=== PATIENT | female | born 1985 | race Caucasian/White ===

== ENCOUNTER 2017-05-12 17:28 | Emergency (ER) | payer MEDICARE, OTHER ==
[2017-05-12 18:18] LABS: #Eosinphils 0.1 thou/uL (0.0-0.7); #Lymphocytes 1.7 thou/uL (1.20-3.40); #Monocytes 0.5 thou/uL (0.11-0.59); #Neutrophils 5.4 thou/uL (1.40-6.50); %Basophils 0.6 % (0.0-1.0); %Eosinophils 1.1 % (0.0-10.0); %Lymphocytes 21.7 % (21.0-51.0); %Monocytes 6.8 % (0.0-10.0); %Neutrophils 69.8 % (42.0-75.0); Hemoglobin 13.9 g/dL (12.0-16.0); Mean Corpuscular HGB CONC 33.1 g/dL (32.0-36.0); Mean Corpuscular Hemoglobin 29.2 pg (27.0-31.0); Mean Corpuscular Volume 88.1 fl (81.0-99.0); Mean Platelet Volume 7.5 fL (7.4-10.4); Platelet Count 251 thou/uL (130-400); RBC Distribution Width 11.6 % (11.5-14.5); Red Blood Cell (RBC) Count 4.78 mill/uL (4.20-5.40); White Blood Cell (WBC) Count 7.7 thou/uL (4.8-10.8)
[2017-05-12 18:32] LABS: Amphetamine Not Detected (NotDetected); Barbiturates Screen Not Detected (NotDetected); Benzodiazepine Screen Detected (NotDetected); Cocaine Metabolite Screen Not Detected (NotDetected); Medtox Control Line Valid? VALID (VALID); Medtox Reader # READER 1; Methadone Not Detected (NotDetected); Methamphetamine Not Detected (NotDetected); Opiate Screen Not Detected (NotDetected); Oxycodone Screen Not Detected (NotDetected); Phencyclidine (PCP) Not Detected (NotDetected); THC/Cannabinoid Screen Not Detected (NotDetected); Tricyclic Screen Not Detected (NotDetected)
[2017-05-12 18:42] LABS: ALT (SGPT) 15 U/L (8-55); AST (SGOT) 19 U/L (5-34); Acetaminophen Less than 6.0 mcg/mL (10.0-30.0); Albumin 4.2 g/dL (3.5-5.0); Alcohol Less than 10 mg/dL (Less than 10); Alkaline Phosphatase 92 U/L (40-150); Anion Gap 12 mmol/L (10-20); BUN (Urea Nitrogen) 12 mg/dL (7.0-18.7); Bilirubin, Total 0.2 mg/dL (0.2-1.2); Calc. Creatinine Clearance 0 mL/min (70-130); Calcium 9.4 mg/dL (7.8-10.44); Carbon Dioxide 26 mmol/L (22-29); Chloride 104 mmol/L (98-107); Estimated GFR-MDRD Greater than 90; Globulin 2.8 g/dL (2.4-3.5); Glucose 83 mg/dL (70-105); Salicylate Less than 8.0 mg/dL (15.0-30.0); Sodium 138 mmol/L (136-145)
[2017-05-12 19:20] LABS: Bilirubin Negative (Negative); Blood, Urine Negative (Negative); Clarity CLEAR (Clear); Glucose, Urine (Dipstick) Negative (Negative); Leukocyte Trace (Negative); Nitrite Negative (Negative); Pregnancy Test - Urine (BHCG) Negative (Negative); Pregu Control Background? CLEAR/WHITE (CLR/WHITE); Pregu Control Bar Appear? YES (CONTROL BAR); Protein, Urine (Dipstick) Negative (Neg-Trace); Specific Gravity 1.015 (1.002-1.036); Specific Gravity, Urine 1.015 (1.002-1.036); Urobilinogen 0.2 mg/dL (0.2-1.0)
[2017-05-12 19:22] LABS: Bacteria/HPF None Seen HPF (None Seen); Hyaline Casts/LPF 0-3 HYALINE CAST LPF (0-3 Hyaline); Pathc Cast-AUWi Flag 0.13 (0-2.49); RBC/HPF 0-3 HPF (0-3); Squamous Epithelial 0-3 HPF (0-3)
== END 2017-05-12 22:49 | disposition home or self-care (01) ==
LOC: ERS 17:28
DX: F41.9 Anxiety disorder, unspecified (principal); Z79.84 Long term (current) use of oral hypoglycemic drugs; Z79.899 Other long term (current) drug therapy
CPT/HCPCS: 36415; 80053; 80306; 80307; 81003; 81015; 81025; 84443; 85025; 99283

== ENCOUNTER 2018-05-25 08:24 | Outpatient (CLI) | payer OTHER, MEDICARE, MEDICAID ==
--- NOTE | 2018-05-25 13:53 | NM ---
RADIONUCLIDE GASTRIC EMPTYING SCAN: HISTORY: A 33-year-old female with vomiting, unspecified. TECHNIQUE: A gastric emptying scan was performed, following the oral administration of 2.1 millicuries of techne tium 99m sulfur colloid in scrambled eggs. FINDINGS: There is 36% emptying of the ingested gastric contents at 1 hour, 75% emptying at 2 hours, 87% emptyi ng at 3 hours, and 100% emptying at 4 hours. The calculated gastric emptying half-time measures 91 minutes. IMPRESSION: Normal exam. POS: [id number]
== END 2018-05-25 08:25 | disposition home or self-care (01) ==
LOC: NM 08:24
PROVIDERS: ATTEND Internal Medicine Endocrinology, Diabetes & Metabolism
DX: R11.10 Vomiting, unspecified (principal); R73.03 Prediabetes
CPT/HCPCS: 78264; A9541

== ENCOUNTER 2020-11-15 15:34 | Outpatient (CLI) | payer MEDICARE, MEDICAID | END 2020-11-15 15:35 | disposition home or self-care (01) | LOC: BICULT 15:34 | PROVIDERS: ATTEND Urology | DX: R35.1 Nocturia (principal) | CPT/HCPCS: 76770 ==

== ENCOUNTER 2022-01-09 12:13 | Outpatient (CLI) | payer OTHER, MEDICARE ==
[2022-01-09 13:39] LABS: Bilirubin Neg (Negative); Blood, Urine 250 (Negative); Clarity Sl. Cloudy (Clear); Glucose, Urine (Dipstick) Normal (Negative); Ketone, Urine 150 mg/dL (Negative); Leukocyte 25 (Negative); Nitrite Negative (Negative); Protein, Urine (Dipstick) 100 mg/dl (Neg-Trace); Specific Gravity, Urine 1.015 (1.005-1.030); Urobilinogen Normal mg/dL (Less than 2)
[2022-01-09 13:40] LABS: Hemoglobin 14.2 g/dL (12.0-15.5); Mean Corpuscular HGB CONC 35.1 g/dL (32.0-36.0); Mean Corpuscular Hemoglobin 30.9 pg (27.0-33.0); Mean Corpuscular Volume 87.8 fl (81.6-98.3); Platelet Count 287 10x3/uL (150-450); RBC Distribution Width 11.2 % (11.5-14.5); White Blood Cell (WBC) Count 6.8 10x3/uL (3.5-10.5)
[2022-01-09 13:56] LABS: BHCG - Serum Negative (NEGATIVE); Bacteria/HPF None Seen HPF (None Seen); Pregs Control Background? CLEAR/WHITE (CLR/WHITE); Pregs Control Bar Appear? YES (CONTROL BAR); Squamous Epithelial 0-3 HPF (0-3); WBC/HPF 0-3 HPF (0-3)
[2022-01-09 14:04] LABS: Anion Gap 16 mmol/L (10-20); BUN (Urea Nitrogen) 15 mg/dL (7.0-18.7); Calc. Creatinine Clearance 0 mL/min (70-130); Calcium 9.4 mg/dL (7.8-10.44); Carbon Dioxide 28 mmol/L (22-29); Chloride 100 mmol/L (98-107); Estimated GFR 96; Glucose 140 mg/dL (70-105); Potassium 3.9 mmol/L (3.5-5.1); Sodium 140 mmol/L (136-145)
[2022-01-09 14:16] LABS: INR-International Normal Ratio 0.9; PTT 28.5 sec (22.0-33.0); Prothrombin Time 9.9 sec (9.5-12.1)
== END 2022-01-09 12:14 | disposition home or self-care (01) ==
LOC: LABBT 12:13
PROVIDERS: ATTEND Urology
DX: Z01.812 Encounter for preprocedural laboratory examination (principal); N20.2 Calculus of kidney with calculus of ureter
CPT/HCPCS: 80048; 81001; 84703; 85027; 85610; 85730; 87086

== ENCOUNTER 2022-01-16 10:45 | Day surgery (SDC) | payer OTHER, MEDICAID ==
[2022-01-15 12:44] VITALS: BMI 26.1
[2022-01-16] MEDS ORDERED: Lidocaine 1% MPF 2 ML VIAL ONE (13:44)
[2022-01-16] MEDS ORDERED: B & O ONE (14:33)
[2022-01-16] MEDS ORDERED: Midazolam HCl 2 mg/2 ml Vial ONE (14:49)
[2022-01-16] MEDS ORDERED: Iopamidol 0 ML ONE (15:09)
[2022-01-16] MEDS ORDERED: Levofloxacin 500 mg/D5W 100 ml Premix Bag ONE (15:19)
[2022-01-16] MEDS ORDERED: FENTANYL 50 MCG/ML 1 ML VIAL ONE ×3 (15:27→17:24)
[2022-01-16] MEDS ORDERED: Ketorolac Tromethamine 30 MG/ML VIAL ONE (15:34)
[2022-01-16] MEDS ORDERED: Dexamethasone 20 MG/5 ML VIAL ONE (15:34)
[2022-01-16] MEDS ORDERED: Ondansetron PF 4 MG/2 ML Vial ONE (15:34)
[2022-01-16] MEDS ORDERED: PROPOFOL 200 MG/20 ML VIAL ONE (15:34)
[2022-01-16] MEDS ORDERED: ePHEDrine 50 MG/ML VIAL ONE (15:34)
[2022-01-16] MEDS ORDERED: PHENYLEPHRINE-NS 100 MCG/ML 10 ML SYRINGE ONE (15:34)
[2022-01-16] MEDS ORDERED: Hydrocodone-Acetamin 15 ML UDCUP ONE (17:37)
[2022-01-16] MEDS ORDERED: HYDROcodone/Acetaminophen 5/325 mg Tablet ONE (17:38)
== END 2022-01-16 18:30 | disposition home or self-care (01) ==
LOC: SDC 10:45
PROVIDERS: ATTEND Urology
PROC: 0TC48ZZ Extirpation of Matter from Left Kidney Pelvis, Via Natural or Artificial Opening Endoscopic (ICD-10-PCS; principal; 2022-01-16)
PROC: 0TC78ZZ Extirpation of Matter from Left Ureter, Via Natural or Artificial Opening Endoscopic (ICD-10-PCS; 2022-01-16)
PROC: 0TC38ZZ Extirpation of Matter from Right Kidney Pelvis, Via Natural or Artificial Opening Endoscopic (ICD-10-PCS; 2022-01-16)
PROC: 0T788DZ Dilation of Bilateral Ureters with Intraluminal Device, Via Natural or Artificial Opening Endoscopic (ICD-10-PCS; 2022-01-16)
DX: N20.2 Calculus of kidney with calculus of ureter (principal); K21.9 Gastro-esophageal reflux disease without esophagitis; R73.03 Prediabetes; Z79.84 Long term (current) use of oral hypoglycemic drugs; Z79.85 Long-term (current) use of injectable non-insulin antidiabetic drugs; Z79.890 Hormone replacement therapy; Z79.899 Other long term (current) drug therapy
CPT/HCPCS: 52332; 52352; 52356; J3010; 82365; 88300; C1769; C2617; J1100; J1885; J1956; J2250; J2405; J2704; J3490; Q9967

== ENCOUNTER 2022-02-07 22:38 | Emergency (ER) | payer OTHER, MEDICARE ==
[2022-02-07] MEDS ORDERED: Albuterol Sulfate 2.5 mg/3 ml Neb ONE (23:52)
== END 2022-02-08 00:34 | disposition home or self-care (01) ==
LOC: ERS 22:38
DX: R06.02 Shortness of breath (principal)
CPT/HCPCS: 71045; 93005; 94640; J7611

== ENCOUNTER 2022-04-19 07:59 | Emergency (ER) | payer MEDICARE, MEDICAID ==
[2022-04-19 08:42] LABS: #Basophils 0.1 thou/uL (0.0-0.2); #Eosinphils 0.1 thou/uL (0.0-0.7); #Lymphocytes 1.9 thou/uL (1.20-3.40); #Monocytes 0.5 thou/uL (0.11-0.59); #Neutrophils 4.7 thou/uL (1.40-6.50); %Basophils 0.8 % (0.0-1.0); %Eosinophils 1.6 % (0.0-10.0); %Monocytes 6.8 % (0.0-10.0); %Neutrophils 64.8 % (42.0-75.0); Hemoglobin 14.3 g/dL (12.0-16.0); Mean Corpuscular HGB CONC 34.4 g/dL (32.0-36.0); Mean Corpuscular Hemoglobin 32.4 pg (27.0-31.0); Mean Corpuscular Volume 94.1 fl (78.0-98.0); Mean Platelet Volume 7.2 fL (7.4-10.4); Platelet Count 249 10x3/uL (130-400); RBC Distribution Width 10.4 % (11.5-14.5); Red Blood Cell (RBC) Count 4.43 mill/uL (4.20-5.40); White Blood Cell (WBC) Count 7.3 10x3/uL (4.8-10.8)
[2022-04-19 08:57] LABS: BHCG - Serum Negative (NEGATIVE); Pregs Control Background? CLEAR/WHITE (CLR/WHITE); Pregs Control Bar Appear? YES (CONTROL BAR)
[2022-04-19 09:03] LABS: ALT (SGPT) 14 U/L (8-55); AST (SGOT) 18 U/L (5-34); Albumin 4.3 g/dL (3.5-5.0); Alkaline Phosphatase 60 U/L (40-110); Anion Gap 12 mmol/L (10-20); BUN (Urea Nitrogen) 9 mg/dL (7.0-18.7); Bilirubin, Total 0.4 mg/dL (0.2-1.2); Calc. Creatinine Clearance 0 mL/min (70-130); Calcium 9.5 mg/dL (7.8-10.44); Carbon Dioxide 29 mmol/L (22-29); Chloride 106 mmol/L (98-107); Estimated GFR 109; Globulin 2.6 g/dL (2.4-3.5); Glucose 107 mg/dL (70-105); Lipase 75 U/L (8-78); Protein, Total 6.9 g/dL (6.0-8.3); Sodium 143 mmol/L (136-145)
[2022-04-19 09:40] LABS: Bilirubin Negative (Negative); Blood, Urine Negative (Negative); Clarity Clear (Clear); Glucose, Urine (Dipstick) Normal (Negative); Ketone, Urine Negative (Negative); Leukocyte Negative Leu/uL (Negative); Nitrite Negative (Negative); Protein, Urine (Dipstick) Negative (Neg-Trace); Specific Gravity, Urine 1.017 (1.002-1.036); Urobilinogen Normal mg/dL (Less than 2)
[2022-04-19] MEDS ORDERED: Ondansetron PF 4 MG/2 ML Vial ONE (10:27)
[2022-04-19] MEDS ORDERED: Ketorolac Tromethamine 30 MG/ML VIAL ONE (10:27)
[2022-04-19] MEDS ORDERED: Morphine 4 MG/ML VIAL ONE (10:32)
== END 2022-04-19 14:00 | disposition home or self-care (01) ==
LOC: ERS 07:59
DX: N13.2 Hydronephrosis with renal and ureteral calculous obstruction (principal)
CPT/HCPCS: 36415; 74176; 80053; 81003; 83690; 84703; 85025; 96374; 96375; J1885; J2270; J2405

== ENCOUNTER 2022-09-01 13:17 | Outpatient (CLI) | payer OTHER, MEDICARE ==
[2022-09-01 13:52] LABS: Bilirubin Neg (Negative); Blood, Urine 25 (Negative); Glucose, Urine (Dipstick) Normal (Negative); Ketone, Urine Negative (Negative); Leukocyte 100 (Negative); Nitrite Negative (Negative); Protein, Urine (Dipstick) 15 mg/dl (Neg-Trace); Urobilinogen Normal mg/dL (Less than 2); pH, Urine 6.5 (5.0-9.0)
[2022-09-01 13:56] LABS: Hemoglobin 14.3 g/dL (12.0-15.5); Mean Corpuscular Hemoglobin 30.1 pg (27.0-33.0); Mean Corpuscular Volume 88.6 fl (81.6-98.3); Mean Platelet Volume 9.1 fl (7.4-10.4); Platelet Count 259 10x3/uL (150-450); RBC Distribution Width 10.8 % (11.5-14.5); Red Blood Cell (RBC) Count 4.75 10x6/uL (3.90-5.03)
[2022-09-01 14:02] LABS: Clarity Clear (Clear)
[2022-09-01 14:05] LABS: INR-International Normal Ratio 0.9; PTT 31.6 sec (22.0-33.0); Prothrombin Time 9.8 sec (9.5-12.1)
[2022-09-01 14:06] LABS: Anion Gap 13 mmol/L (10-20); BUN (Urea Nitrogen) 12 mg/dL (7.0-18.7); Calc. Creatinine Clearance 0 mL/min (70-130); Calcium 9.3 mg/dL (7.8-10.44); Carbon Dioxide 27 mmol/L (22-29); Chloride 106 mmol/L (98-107); Estimated GFR 80; Glucose 65 mg/dL (70-105); Potassium 3.5 mmol/L (3.5-5.1); Sodium 142 mmol/L (136-145)
[2022-09-01 14:15] LABS: BHCG - Serum Negative (NEGATIVE); Pregs Control Background? CLEAR/WHITE (CLR/WHITE); Pregs Control Bar Appear? YES (CONTROL BAR)
[2022-09-01 14:37] LABS: Bacteria/HPF None Seen HPF (None Seen); Squamous Epithelial 0-3 HPF (0-3); WBC/HPF 0-3 HPF (0-3)
== END 2022-09-01 13:18 | disposition home or self-care (01) ==
LOC: LABBT 13:17
PROVIDERS: ATTEND Urology
DX: Z01.812 Encounter for preprocedural laboratory examination (principal); N20.0 Calculus of kidney; R35.1 Nocturia; F31.81 Bipolar II disorder; F70 Mild intellectual disabilities; R62.50 Unspecified lack of expected normal physiological development in childhood; R73.03 Prediabetes
CPT/HCPCS: 80048; 81001; 84703; 85027; 85610; 85730; 87086

== ENCOUNTER 2022-09-05 06:18 | Day surgery (SDC) | payer OTHER, MEDICAID ==
[2022-09-01 13:48] VITALS: BMI 30.4
[2022-09-05] MEDS ORDERED: fentaNYL 50 mcg/mL 1 mL Vial ONE (09:35)
[2022-09-05] MEDS ORDERED: Iopamidol 0 ML ONE (09:39)
[2022-09-05] MEDS ORDERED: Midazolam HCl 2 mg/2 ml Vial ONE (09:43)
[2022-09-05] MEDS ORDERED: Levofloxacin 500 mg/D5W 100 ml Premix Bag ONE (09:44)
[2022-09-05] MEDS ORDERED: Ketorolac Tromethamine 30 MG/ML VIAL ONE (09:47)
[2022-09-05] MEDS ORDERED: Ondansetron PF 4 MG/2 ML Vial ONE (09:47)
[2022-09-05] MEDS ORDERED: PROPOFOL 200 MG/20 ML VIAL ONE (09:47)
[2022-09-05] MEDS ORDERED: Dexamethasone 20 MG/5 ML VIAL ONE (09:47)
[2022-09-05] MEDS ORDERED: Lidocaine 1% PF 5 ML VIAL ONE (09:47)
[2022-09-05] MEDS ORDERED: Oxybutynin 5 MG TAB ONE (11:20)
[2022-09-05] MEDS ORDERED: Phenazopyridine HCl 100 MG TAB ONE (11:20)
== END 2022-09-05 12:54 | disposition home or self-care (01) ==
LOC: SDC 06:18
PROVIDERS: ATTEND Urology
PROC: 0TF48ZZ Fragmentation in Left Kidney Pelvis, Via Natural or Artificial Opening Endoscopic (ICD-10-PCS; principal; 2022-09-05)
DX: N20.2 Calculus of kidney with calculus of ureter (principal); K21.9 Gastro-esophageal reflux disease without esophagitis; E03.9 Hypothyroidism, unspecified; F41.8 Other specified anxiety disorders; F31.81 Bipolar II disorder; F70 Mild intellectual disabilities; Z79.899 Other long term (current) drug therapy
CPT/HCPCS: 82365; 88300; C1713; C1747; C1769; C2617; J1100; J1885; J1956; J2250; J2405; J2704; J3010; Q9967

== ENCOUNTER 2022-09-07 23:59 | Inpatient (IN) | payer OTHER ==
[2022-09-08] MEDS ORDERED: Acetaminophen 500 MG TAB ONE (00:43)
[2022-09-08] MEDS ORDERED: Cefepime 2 GM VIAL ONE (00:43)
[2022-09-08 01:02] LABS: #Monocytes 0.7 thou/uL (0.11-0.59); #Neutrophils 11.3 thou/uL (1.40-6.50); %Basophils 0.3 % (0.0-1.0); %Lymphocytes 9.2 % (21.0-51.0); Hemoglobin 13.8 g/dL (12.0-16.0); Mean Corpuscular HGB CONC 34.6 g/dL (32.0-36.0); Mean Corpuscular Hemoglobin 30.8 pg (27.0-31.0); Mean Corpuscular Volume 89.1 fl (78.0-98.0); Mean Platelet Volume 9.3 fL (7.4-10.4); Platelet Count 261 10x3/uL (130-400); RBC Distribution Width 10.7 % (11.5-14.5); Red Blood Cell (RBC) Count 4.48 mill/uL (4.20-5.40); White Blood Cell (WBC) Count 13.3 10x3/uL (4.8-10.8)
[2022-09-08 01:28] LABS: BHCG - Serum Negative (NEGATIVE); Pregs Control Background? CLEAR/WHITE (CLR/WHITE); Pregs Control Bar Appear? YES (CONTROL BAR)
[2022-09-08 01:29] LABS: ALT (SGPT) 14 U/L (8-55); AST (SGOT) 15 U/L (5-34); Albumin 4.4 g/dL (3.5-5.0); Alkaline Phosphatase 75 U/L (40-110); Anion Gap 17 mmol/L (10-20); BUN (Urea Nitrogen) 13 mg/dL (7.0-18.7); Bilirubin, Total 0.6 mg/dL (0.2-1.2); Calc. Creatinine Clearance 0 mL/min (70-130); Carbon Dioxide 26 mmol/L (22-29); Chloride 102 mmol/L (98-107); Estimated GFR 89; Globulin 2.8 g/dL (2.4-3.5); Glucose 89 mg/dL (70-105); Protein, Total 7.2 g/dL (6.0-8.3); Sodium 141 mmol/L (136-145)
[2022-09-08 01:35] LABS: Bacteria/HPF None Seen HPF (None Seen); Bilirubin Negative (Negative); Blood, Urine 3+ (Negative); CAUTI Indications for Culture Fever or rigors; Clarity Turbid (Clear); Glucose, Urine (Dipstick) Normal (Negative); Ketone, Urine Trace mg/dL (Negative); Leukocyte 75 Leu/uL (Negative); Nitrite Negative (Negative); Protein, Urine (Dipstick) 70 mg/dL (Neg-Trace); RBC/HPF Greater than 50 HPF (0-3); Specific Gravity, Urine 1.015 (1.002-1.036); Squamous Epithelial 0-3 HPF (0-3); Urobilinogen Normal mg/dL (Less than 2); WBC/HPF Greater than 50 HPF (0-3); pH, Urine 7.5 (5.0-9.0)
[2022-09-08 01:48] LABS: Urine Culture Reflex Yes Yes
[2022-09-08] MEDS ORDERED: Morphine 4 MG/ML VIAL ONE ×2 (02:22→09:03)
[2022-09-08] MEDS ORDERED: Ketorolac Tromethamine 30 MG/ML VIAL ONE (02:22)
[2022-09-08] MEDS ORDERED: Vancomycin 1 GM/200 ML (FROZEN) BAG ONE (02:22)
[2022-09-08] MEDS ORDERED: HYDROcodone/Acetaminophen 5/325 mg Tablet PO PRN ×2 (04:33→07:39)
[2022-09-08] MEDS ORDERED: Sodium Chloride 0.9% 1,000 ML IV SCH (04:45)
[2022-09-08] MEDS ORDERED: Ondansetron PF 4 MG/2 ML Vial IVP PRN (04:52)
[2022-09-08] MEDS ORDERED: Acetaminophen 325 MG TAB PO PRN (04:52)
[2022-09-08 05:37] VITALS: BMI 30.4
[2022-09-08] MEDS ORDERED: HYDROcodone/Acetaminophen 5/325 mg Tablet ONE (06:22)
[2022-09-08] MEDS ORDERED: diphenhydrAMINE 25 MG CAP PO PRN (07:39)
[2022-09-08] MEDS ORDERED: Loperamide HCl 2 MG CAP PO PRN ×2 (07:39)
[2022-09-08] MEDS ORDERED: Benzonatate 100 MG CAP PO PRN (07:39)
[2022-09-08] MEDS ORDERED: Artificial Tear Sol 15 ML BOT EA EYE PRN (07:39)
[2022-09-08] MEDS ORDERED: Benzocaine/Menthol 1 LOZ LOZ PO PRN (07:39)
[2022-09-08] MEDS ORDERED: Sodium Chloride 0.65% Nasal 44 ML BOT EA NARE PRN (07:39)
[2022-09-08] MEDS ORDERED: Moisturizing Cream (Eucerin) 113 GM JAR TOP PRN (07:39)
[2022-09-08] MEDS ORDERED: Calcium Carbonate 500 MG ChewTAB PO PRN (07:39)
[2022-09-08] MEDS ORDERED: Zolpidem Tartrate 5 MG TAB PO PRN (07:39)
[2022-09-08] MEDS ORDERED: Senokot S 8.6-50 MG TAB PO PRN (07:39)
[2022-09-08] MEDS ORDERED: Morphine 4 MG/ML VIAL SLOW IVP PRN (08:30)
[2022-09-08] MEDS ORDERED: THYROID PORK 120 MG PO SCH (09:00)
[2022-09-08] MEDS ORDERED: Famotidine 20 MG TAB ONE (09:03)
[2022-09-08] MEDS ORDERED: Acetaminophen 325 MG TAB ONE (09:11)
[2022-09-08] MEDS: Famotidine 20 MG TAB PO SCH ×2 (09:13→20:44)
[2022-09-08] MEDS ORDERED: Iopamidol-370 76% 500 ML MDV (1 ML CHARGE) ONE (10:16)
[2022-09-08] MEDS ORDERED: Morphine 2 MG/ML VIAL SLOW IVP PRN (12:03)
[2022-09-08] MEDS: Cefepime 2 GM in Sodium Chloride 0.9% 100 ML IVPB SCH (12:32)
[2022-09-08] MEDS: Ketorolac Tromethamine 30 MG/ML VIAL IVP SCH ×2 (12:33→18:39)
[2022-09-08] MEDS: busPIRone HCl 10 MG TAB PO SCH ×2 (12:33→20:42)
[2022-09-08] MEDS: D5 1/2 NS w/20 mEq KCL 1,000 ML IV SCH (12:34)
[2022-09-08] MEDS: Thyroid 60 MG TAB PO SCH (12:34)
[2022-09-08] MEDS: metFORMIN XR 500 MG TAB PO SCH ×2 (12:57→20:47)
[2022-09-08] MEDS ORDERED: Vancomycin 1.5 GRAM/300 ML BAG 1.5 GM in Premix Bag 1 BAG IVPB SCH (13:00)
[2022-09-08] MEDS: Icosapent Ethyl 1 GM CAPSULE PO SCH ×2 (14:50→20:44)
[2022-09-08] MEDS: Vancomycin 1.5 GRAM/300 ML BAG 1.5 GM in Premix Bag 1 BAG IVPB SCH (14:50)
[2022-09-08] MEDS: Acetaminophen 500 MG TAB PO SCH ×2 (14:51→20:41)
[2022-09-08] MEDS: NORGESTIMATE ETHINYL ESTRADIOL PO SCH ×2 (19:27→21:00)
[2022-09-08] MEDS: clonazePAM 0.5 MG TAB PO SCH (20:43)
[2022-09-08] MEDS: lamoTRIgine 100 MG TAB PO SCH (20:45)
[2022-09-08] MEDS: Potassium Citrate 10 MEQ TAB PO SCH (20:48)
[2022-09-08] MEDS: traZODone HCl 150 MG TAB PO SCH (20:49)
[2022-09-08] MEDS: Tamsulosin HCl 0.4 MG CAP PO SCH (20:49)
[2022-09-08] MEDS ORDERED: Amitriptyline HCl 25 MG TAB PO SCH (21:00)
[2022-09-09] MEDS: Ketorolac Tromethamine 30 MG/ML VIAL IVP SCH ×5 (00:43→18:24)
[2022-09-09] MEDS: Cefepime 2 GM in Sodium Chloride 0.9% 100 ML IVPB SCH ×2 (00:44→12:19)
[2022-09-09] MEDS: Acetaminophen 500 MG TAB PO SCH ×4 (02:23→20:40)
[2022-09-09] MEDS: Vancomycin 1.5 GRAM/300 ML BAG 1.5 GM in Premix Bag 1 BAG IVPB SCH ×2 (02:24→13:22)
[2022-09-09] MEDS: D5 1/2 NS w/20 mEq KCL 1,000 ML IV SCH ×2 (04:27→20:57)
[2022-09-09 06:12] LABS: #Monocytes 1.6 thou/uL (0.11-0.59); #Neutrophils 15.1 thou/uL (1.40-6.50); %Basophils 0.2 % (0.0-1.0); %Eosinophils 0.1 % (0.0-10.0); %Monocytes 8.8 % (0.0-10.0); %Neutrophils 83.4 % (42.0-75.0); Hemoglobin 10.9 g/dL (12.0-16.0); Mean Corpuscular HGB CONC 34.2 g/dL (32.0-36.0); Mean Corpuscular Hemoglobin 31.1 pg (27.0-31.0); Mean Corpuscular Volume 90.9 fl (78.0-98.0); Platelet Count 198 10x3/uL (130-400); RBC Distribution Width 11.1 % (11.5-14.5); Red Blood Cell (RBC) Count 3.51 mill/uL (4.20-5.40); White Blood Cell (WBC) Count 18.1 10x3/uL (4.8-10.8)
[2022-09-09 06:44] LABS: ALT (SGPT) 11 U/L (8-55); AST (SGOT) 13 U/L (5-34); Albumin 3.3 g/dL (3.5-5.0); Alkaline Phosphatase 62 U/L (40-110); Anion Gap 13 mmol/L (10-20); BUN (Urea Nitrogen) 14 mg/dL (7.0-18.7); Bilirubin, Total 0.5 mg/dL (0.2-1.2); Calc. Creatinine Clearance 166 mL/min (70-130); Calcium 8.4 mg/dL (7.8-10.44); Carbon Dioxide 24 mmol/L (22-29); Chloride 108 mmol/L (98-107); Estimated GFR 116; Globulin 2.3 g/dL (2.4-3.5); Glucose 94 mg/dL (70-105); Potassium 3.9 mmol/L (3.5-5.1); Protein, Total 5.6 g/dL (6.0-8.3); Sodium 141 mmol/L (136-145)
[2022-09-09] MEDS: ALPRAZolam 1 MG TAB PO PRN (07:20)
[2022-09-09] MEDS ORDERED: Cyanocobalamin (Vitamin B-12) 1,000 MCG TAB PO SCH (09:00)
[2022-09-09] MEDS ORDERED: Cholecalciferol 1,000 UNITS (25 MCG) TAB PO SCH (09:00)
[2022-09-09] MEDS: NORGESTIMATE ETHINYL ESTRADIOL PO SCH (09:39)
[2022-09-09] MEDS: Icosapent Ethyl 1 GM CAPSULE PO SCH ×2 (09:40→20:44)
[2022-09-09] MEDS: Potassium Citrate 10 MEQ TAB PO SCH ×2 (09:41→20:45)
[2022-09-09] MEDS: Ascorbic Acid 500 mg Chewable Tablet PO SCH (09:41)
[2022-09-09] MEDS: Thyroid 60 MG TAB PO SCH (09:41)
[2022-09-09] MEDS: Multivitamin W/ Minerals 1 TAB PO SCH (09:42)
[2022-09-09] MEDS: Fish Oil 1,000 MG CAP PO SCH (09:42)
[2022-09-09] MEDS: busPIRone HCl 10 MG TAB PO SCH ×2 (09:42→20:43)
[2022-09-09] MEDS: Famotidine 20 MG TAB PO SCH ×2 (09:42→20:44)
[2022-09-09] MEDS: metFORMIN XR 500 MG TAB PO SCH ×2 (09:43→20:48)
[2022-09-09] MEDS: clonazePAM 0.5 MG TAB PO SCH (20:44)
[2022-09-09] MEDS: Tamsulosin HCl 0.4 MG CAP PO SCH (20:45)
[2022-09-09] MEDS: traZODone HCl 150 MG TAB PO SCH (20:48)
[2022-09-09] MEDS: lamoTRIgine 100 MG TAB PO SCH (20:54)
[2022-09-09] MEDS ORDERED: Amitriptyline HCl 25 MG TAB PO SCH (21:00)
[2022-09-10] MEDS: Ketorolac Tromethamine 30 MG/ML VIAL IVP SCH ×3 (00:20→11:43)
[2022-09-10] MEDS: Cefepime 2 GM in Sodium Chloride 0.9% 100 ML IVPB SCH ×2 (00:21→13:38)
[2022-09-10 00:27] VITALS: BP 101/64; TEMP 98.1
[2022-09-10 01:21] LABS: Vancomycin, Trough 10.1 ug/mL
[2022-09-10] MEDS ORDERED: VANCOMYCIN 1.25 GM/250 ML BAG 1.25 GM in Premix Bag 1 BAG IVPB SCH (02:00)
[2022-09-10] MEDS ORDERED: Acetaminophen 325 MG TAB PO PRN (03:00)
[2022-09-10 07:58] LABS: Anion Gap 14 mmol/L (10-20); BUN (Urea Nitrogen) 13 mg/dL (7.0-18.7); Calc. Creatinine Clearance 182 mL/min (70-130); Calcium 8.3 mg/dL (7.8-10.44); Carbon Dioxide 18 mmol/L (22-29); Chloride 112 mmol/L (98-107); Estimated GFR 118; Glucose 79 mg/dL (70-105); Potassium 4.5 mmol/L (3.5-5.1); Sodium 139 mmol/L (136-145)
[2022-09-10] MEDS: Thyroid 60 MG TAB PO SCH (08:28)
[2022-09-10] MEDS: NORGESTIMATE ETHINYL ESTRADIOL PO SCH (08:29)
[2022-09-10] MEDS: busPIRone HCl 10 MG TAB PO SCH (08:30)
[2022-09-10] MEDS: Fish Oil 1,000 MG CAP PO SCH (08:30)
[2022-09-10] MEDS: Icosapent Ethyl 1 GM CAPSULE PO SCH (08:30)
[2022-09-10] MEDS: Multivitamin W/ Minerals 1 TAB PO SCH (08:30)
[2022-09-10] MEDS: Famotidine 20 MG TAB PO SCH (08:31)
[2022-09-10] MEDS: Ascorbic Acid 500 mg Chewable Tablet PO SCH (08:31)
[2022-09-10] MEDS: metFORMIN XR 500 MG TAB PO SCH (08:31)
[2022-09-10] MEDS: Potassium Citrate 10 MEQ TAB PO SCH (09:26)
[2022-09-10] MEDS: ALPRAZolam 1 MG TAB PO PRN (11:41)
[2022-09-14] MEDS ORDERED: Semaglutide [Ozempic] 0.25 MG/0.2 ML SC SCH (09:00)
== END 2022-09-10 15:59 | disposition home or self-care (01) | DRG 872 ==
LOC: ERS 23:59 → ERHOLD 09-08 04:30 → T4-B 09-08 04:32 → OBSVTOIN 09-08 11:55
PROVIDERS: ADMIT Internal Medicine Nephrology; ATTEND Internal Medicine Geriatric Medicine
DX: A41.51 Sepsis due to Escherichia coli [E. coli] (principal); N13.30 Unspecified hydronephrosis; N13.4 Hydroureter; N12 Tubulo-interstitial nephritis, not specified as acute or chronic; F41.9 Anxiety disorder, unspecified; F32.A Depression, unspecified; E03.9 Hypothyroidism, unspecified; Z79.899 Other long term (current) drug therapy; Z79.84 Long term (current) use of oral hypoglycemic drugs
CPT/HCPCS: 36415; 74177; 80048; 80053; 80202; 81001; 83605; 84145; 84703; 85025; 87040; 87077; 87086; 87186; 94760; 96365; 96366; 96368; 96375; 96376; G0378; J0692; J1885; J2270; J2272; J2405; J3370; J3370-JW; J3480; J3490; J7050; Q9967

== ENCOUNTER 2023-04-07 14:56 | Outpatient (CLI) | payer OTHER, MEDICAID | END 2023-04-07 14:57 | disposition home or self-care (01) | LOC: ULT 14:56 | PROVIDERS: ATTEND Urology | DX: N20.0 Calculus of kidney (principal) | CPT/HCPCS: 76770 ==